=== PATIENT | male | born 1950 | race Caucasian/White ===

== ENCOUNTER → 2017-07-08 | Outpatient (CLI) | payer MEDICARE, OTHER ==
--- NOTE | ~2017-07-08 | MR32 ---
[facility] A Service of [facility] & [facility] RADIOLOGY TEXT RESULTS PATIENT: JOSE ROSS LOCATION: [facility] : 46 UNIT #: [id number] AGE: [address]: KENDALL LEI MD SEX: M ORDER DR: [id number] [facility] [address] [place], [place] [address] [id number] O MR#: [id number] Acc #: [id number] NAME: JOSE ROSS : 1950 SEX: M STUDY DATE/TIME: 07/08/2017 12:57 UNIT: [facility] ROOM: STUDY DESCRIPTION: MR Cervical Wo Contrast Attending Physician: Kendall Lei M.D. Referring Physician: Kendall Lei M.D. Ordering Physician: Kendall Lei M.D. Primary Care Physician: Kendall Lei M.D. MRI CENTER REPORT This report is preliminary unless electronic signature is present. EXAM MRI of the cervical spine without contrast, dated 07/08/2017. COMPARISON CT cervical spine without contrast, dated 07/09/2012, MRI cervical spine without contrast, dated 10/16/2002. HISTORY Patient fell in September 14, 2013. Hurt neck and left shoulder. No therapy or surgery. Patient finds it difficult to lie down. Kyphotic C-spine curvature. Neck pain with radiculopathy. FINDINGS Multisequence, multiplanar imaging of the cervical spine was obtained without contrast. Vertebral body heights are relatively preserved. Degenerative disc disease is at multiple levels. Cord demonstrates expected course, caliber. Punctate increased T2 signal in the left posterolateral aspect of C5-6 cord is not correlated in the other sequences and it could be artifactual. Correlate clinically. Pre and paravertebral soft tissues are unremarkable. C2-3: Mild disc bulge is slightly prominent in the left central to subarticular region with minimal left neural foraminal encroachment. Borderline sized canal. C3-4: Concentric disc bulge with borderline size to mild canal stenosis. And there is probably mild bilateral facet changes without any significant neural foraminal narrowing. C4-5: Concentric disc bulge with tiny central protrusion. There is probably left uncinate spur/protrusion in the left foraminal region with mild inferior left neural foraminal narrowing. Jgtxrlxg-bu-[id number] right and mild left facet hypertrophic changes are noted with borderline size to STS. [facility] A Service of [facility] & [facility] RADIOLOGY TEXT RESULTS PATIENT: JOSE ROSS [facility] : 48 UNIT #: [id number] AGE: [address]: KENDALL LEI MD SEX: M ORDER DR: mild canal stenosis. C5-6: Disc osteophyte complex with superimposed right to left central protrusion extending towards the left subarticular region. There is mild to moderate canal stenosis with [id number] bilateral facet changes and kfjq-js-wephcfdj left neural foraminal narrowing. Cord is slightly flattened without direct impingement on it. No cord signal change. C6-7, C7-T1: Mild degenerative disc signal loss with mild bilateral C6-7 facet changes. IMPRESSION 1. Degenerative changes are noted at multiple levels as described above, mild. 2. It is relatively worse at C5-6 with right to left subarticular broad based disc protrusion which extends towards the left foraminal region and it causes txkz-bl-sshslzoe canal stenosis and left neural foraminal narrowing. 3. Punctate increased T2 signal in the left posterolateral aspect of C5-6 cord is not correlated in the other sequences and it could be artifactual. Correlate clinically. Dictated by... Yana Wilkerson M.D. THIS IS AN ELECTRONICALLY VERIFIED REPORT Yana Wilkerson M.D. at 07/12/2017 11:53 AM CPR/jt TD: 07/08/2017 23:21 JOB #: [id number] MRI CENTER REPORT Page 1 of 1 COPY
== END | disposition home or self-care (01) ==
LOC: CMRI 12:31
DX: M47.22 Other spondylosis with radiculopathy, cervical region (principal); M50.122 Cervical disc disorder at C5-C6 level with radiculopathy; M48.02 Spinal stenosis, cervical region; M99.81 Other biomechanical lesions of cervical region
CPT/HCPCS: 72141